=== PATIENT | male | born 1960 | race Asian ===

== ENCOUNTER 2024-03-22 20:23 | Emergency (ER) | payer OTHER ==
[~2024-03-22] VITALS: Ht 167.6 cm; Wt 72.7 kg
[~2024-03-22 20:23] MED LIST: GLIP10TA17 PO; METF-1211 PO; SIMV-259 PO
[2024-03-22 21:08] VITALS: TEMP 97.1
[2024-03-23 00:12] LABS: BASOPHILS % (AUTO) 0.6 % (0.0-2.0); EOSINOPHILS % (AUTO) 0.8 % (1.0-6.0); HEMATOCRIT 33.3 % (41-53); HEMOGLOBIN 11.6 g/dL (13.5-17.5); LYMPHOCYTES # (AUTO) 1.7 K/uL (1.0-4.8); LYMPHOCYTES % (AUTO) 19.5 % (22.0-44.0); MEAN CORPUSCULAR HEMOGLOBIN 33.6 pg (26.0-34.0); MEAN CORPUSCULAR HGB CONC 34.7 G/dL (31.0-37.0); MEAN CORPUSCULAR VOLUME 97 fL (80-100); MONOCYTES # (AUTO) 1.1 K/uL (0.1-1.0); MONOCYTES % (AUTO) 12.8 % (2.0-9.0); NEUTROPHILS # (AUTO) 5.8 K/uL (1.8-7.7); NEUTROPHILS % (AUTO) 66.3 % (40.0-70.0); PLATELET COUNT (AUTO) 358 K/uL (150-450); RED BLOOD CELL COUNT(AUTO) 3.44 MIL/uL (4.50-5.90); RED CELL DISTRIBUTION WIDTH 12.6 % (11.5-14.5); WHITE BLOOD COUNT (AUTO) 8.7 K/uL (4.5-11.0)
[2024-03-23 00:23] LABS: CALCIUM, TOTAL 9.1 mg/dL (8.8-10.5); CREATININE 2.08 mg/dL (0.60-1.30)
[2024-03-23] MEDS: TraMADol HCL 50 MG TABLET PO ONE (00:27)
[2024-03-23 01:45] VITALS: BP 119/70; PULSE 98; RESP 19; O2SAT 98
== END 2024-03-23 02:03 | disposition home or self-care (01) ==
LOC: EMS 20:23
DX: S92.002A Unspecified fracture of left calcaneus, initial encounter for closed fracture (principal); E11.9 Type 2 diabetes mellitus without complications; I10 Essential (primary) hypertension; Z88.8 Allergy status to other drugs, medicaments and biological substances; X50.1XXA Overexertion from prolonged static or awkward postures, initial encounter; Y93.89 Activity, other specified; Y92.89 Other specified places as the place of occurrence of the external cause; Y99.8 Other external cause status
CPT/HCPCS: 80048; 85025; 99284